=== PATIENT | male | born 1975 | race Caucasian/White ===

== ENCOUNTER 2018-11-28 11:09 | Emergency (ER) | payer OTHER ==
[~2018-11-28] VITALS: Ht 180.3 cm; Wt 93.0 kg
[2018-11-28] MEDS ORDERED: Zoloft25 MG (11:17)
[2018-11-28] MEDS ORDERED: TRIA15CR3 TOP (11:48)
[2018-11-28] MEDS ORDERED: PRED10 PO (11:48)
== END 2018-11-28 12:16 | disposition home or self-care (01) ==
LOC: ER 11:09
DX: L23.7 Allergic contact dermatitis due to plants, except food (principal); Z88.6 Allergy status to analgesic agent
CPT/HCPCS: 99283

== ENCOUNTER 2018-12-27 11:07 | Emergency (ER) | payer OTHER ==
[~2018-12-27] VITALS: Ht 180.3 cm; Wt 90.7 kg
[~2018-12-27 11:07] MED LIST: PRED10 PO; TRIA15CR3 TOP; Zoloft25 MG
[2018-12-27] MEDS ORDERED: TRIA15CR3 TOP ×2 (12:37→12:47)
[2018-12-27] MEDS ORDERED: CEPH500 PO ×2 (12:37→12:47)
[2018-12-27] MEDS ORDERED: KETO10 PO ×2 (12:37→12:47)
== END 2018-12-27 12:50 | disposition home or self-care (01) ==
LOC: ER 11:07
DX: S80.822A Blister (nonthermal), left lower leg, initial encounter (principal); S80.821A Blister (nonthermal), right lower leg, initial encounter; L03.116 Cellulitis of left lower limb; F15.10 Other stimulant abuse, uncomplicated; I10 Essential (primary) hypertension; Z88.8 Allergy status to other drugs, medicaments and biological substances; L23.7 Allergic contact dermatitis due to plants, except food
CPT/HCPCS: 29505; 96372-59; 99283-25; J1885; L1906

== ENCOUNTER 2018-12-30 08:12 | Emergency (ER) | payer OTHER ==
[~2018-12-30] VITALS: Ht 180.3 cm; Wt 90.7 kg
[~2018-12-30 08:12] MED LIST changes: +CEPH500 PO; +KETO10 PO
[2018-12-30 08:53] LABS: BASOPHILS ABSOLUTE AUTO 0.08 K/mm3 (0.00-0.23); BASOPHILS PERCENT AUTO 1 % (0-2); EOSINOPHILS ABSOLUTE AUTO 0.72 K/mm3 (0.00-0.68); EOSINOPHILS PERCENT AUTO 6 % (0-6); Hematocrit 43.7 % (37.0-53.0); Hemoglobin 14.4 g/dL (13.5-17.5); IMMATURE GRAN ABSOLUTE AUTO 0.09 K/mm3 (0.00-0.10); IMMATURE GRAN PERCENT AUTO 1 % (0-1); LYMPHOCYTES ABSOLUTE AUTO 1.28 K/mm3 (0.84-5.20); LYMPHOCYTES PERCENT AUTO 11 % (21-46); MONOCYTES ABSOLUTE AUTO 0.63 K/mm3 (0.16-1.47); MONOCYTES PERCENT AUTO 5 % (4-13); Mean Corpuscular HGB 29.7 pg (26.0-34.0); Mean Corpuscular Volume 90 fL (80-100); Mean Platelet Volume 9.6 fL (9.1-12.4); NEUTROPHILS ABSOLUTE AUTO 8.84 K/mm3 (1.96-9.15); NEUTROPHILS PERCENT AUTO 76 % (41-73); Platelet Count 376 K/mm3 (150-400); RDW Coefficient Variation 13.5 % (11.7-14.2); RDW Standard Deviation 44.5 fL (35.1-46.3); Red Blood Cell Count 4.85 M/mm3 (4.30-5.90); White Blood Cell Count 11.64 K/mm3 (4.00-11.30)
[2018-12-30 09:11] LABS: Alanine Aminotransfer (ALT/SGP 107 U/L (12-78); Albumin/Globulin Ratio 0.6 (0.8-1.8); Alk Phos 167 U/L (50-136); Anion Gap 3 mmol/L (6-16); Aspartate Aminotrans (AST/SGOT 81 U/L (12-37); Bilirubin, Total 0.4 mg/dL (0.1-1.0); Blood Urea Nitrogen 15 mg/dL (8-24); Bun/Creatinine Ratio 15.2 (12.0-20.0); CO2, Blood 28 mmol/L (21-32); Chloride, Blood 106 mmol/L (98-108); Creatinine, Blood 0.99 mg/dL (0.60-1.20); Globulin, Blood 5.3 g/dL (2.2-4.0); Glomerular Filtration Rate >60 (60-); Glucose, Blood 107 mg/dL (70-99); Potassium, Blood 4.3 mmol/L (3.5-5.5); Sodium, Blood 137 mmol/L (136-145); Total Protein, Blood 8.3 g/dL (6.4-8.2)
[2018-12-30] MEDS ORDERED: Bactrim Ds Tab1 EACH PO (10:42)
== END 2018-12-30 13:19 | disposition home or self-care (01) ==
LOC: ER 08:12
PROVIDERS: Physician Assistant
DX: L03.116 Cellulitis of left lower limb (principal); D72.829 Elevated white blood cell count, unspecified; Z88.8 Allergy status to other drugs, medicaments and biological substances; Z79.899 Other long term (current) drug therapy
CPT/HCPCS: 36415; 73610; 80053; 83605; 85025; 87040; 96365; 96367; 99283-25; J0690; J7060